=== PATIENT | male | born 1935 | race Caucasian/White ===

== ENCOUNTER 2020-10-28 11:31 | Outpatient (CLI) | payer MEDICARE | END 2020-10-28 11:32 | disposition home or self-care (01) | LOC: CSHCT 11:31 | PROVIDERS: ATTEND Orthopaedic Surgery | DX: M54.5 Low back pain (principal); M47.816 Spondylosis without myelopathy or radiculopathy, lumbar region; K57.30 Diverticulosis of large intestine without perforation or abscess without bleeding | CPT/HCPCS: 72131; 72148 ==